=== PATIENT | female | born 1960 | race Caucasian/White ===

== ENCOUNTER → 2016-05-19 | Outpatient (CLI) | payer MEDICARE, OTHER ==
[~2016-05-19] MED LIST: AMLO5TAB22 PO; BACT800T5 PO; BUDE3CAP5 PO; CELE100C PO; CIPR500T4 PO; COUM3TAB PO; CYCL-36 PO; DEXA0.5E2 SSP; DILA2TAB2 PO; DOCU1CAP39 PO; FLON0.053 EACH NARE; FLUC200T2 PO; LORA10TA PO; MONT10TA2 PO; POLY119S PO; PRED1%O EACH EYE; PROT40TA PO; REST0.05 EACH EYE; ROPI1TAB72 PO; TACR0.5 PO; ZOVI400T15 PO; [UNRECOGNIZED DRUG - OTHER] PO
[2016-05-19 09:46] LABS: AUTOMATED NEUTROPHIL # 4.2 TH/MM3 (1.8-7.7); BASOPHIL % 0.6 % (0.0-2.0); EOSINOPHIL # 0.2 TH/MM3 (0-0.4); EOSINOPHIL % 3.7 % (0.0-4.0); HEMATOCRIT 38.3 % (35.0-46.0); HEMO FLAGS DIFF FINAL; LYMPH % 13.2 % (9.0-44.0); LYMPHOCYTE # 0.8 TH/MM3 (1.0-4.8); MEAN CELL VOLUME 97.9 FL (80.0-100.0); MEAN CORPUSCULAR HEMOGLOBIN 31.7 PG (27.0-34.0); MEAN CORPUSCULAR HGB CONC 32.3 % (32.0-36.0); MONO % 8.1 % (0.0-8.0); NEUT % 74.4 % (16.0-70.0); PLATELET COUNT 147 TH/MM3 (150-450); RED BLOOD COUNT 3.91 MIL/MM3 (4.00-5.30); RED CELL DISTRIBUTION WIDTH 14.7 % (11.6-17.2); WHITE BLOOD COUNT 5.7 TH/MM3 (4.0-11.0)
== END ==
LOC: CLAB 09:18
DX: D89.813 Graft-versus-host disease, unspecified (principal)
CPT/HCPCS: 36415; 85025

== ENCOUNTER → 2016-06-15 | Outpatient (CLI) | payer MEDICARE, OTHER ==
[2016-06-15 10:59] LABS: AUTOMATED NEUTROPHIL # 4.4 TH/MM3 (1.8-7.7); BASOPHIL % 0.8 % (0.0-2.0); EOSINOPHIL # 0.2 TH/MM3 (0-0.4); EOSINOPHIL % 3.5 % (0.0-4.0); HEMO FLAGS DIFF FINAL; LYMPH % 11.2 % (9.0-44.0); LYMPHOCYTE # 0.7 TH/MM3 (1.0-4.8); MEAN CELL VOLUME 97.4 FL (80.0-100.0); MEAN CORPUSCULAR HEMOGLOBIN 31.5 PG (27.0-34.0); MEAN CORPUSCULAR HGB CONC 32.3 % (32.0-36.0); MONO % 9.6 % (0.0-8.0); NEUT % 74.9 % (16.0-70.0); PLATELET COUNT 132 TH/MM3 (150-450); RED CELL DISTRIBUTION WIDTH 15.1 % (11.6-17.2); WHITE BLOOD COUNT 5.8 TH/MM3 (4.0-11.0)
[2016-06-15 11:15] LABS: ANION GAP 3 MEQ/L (5-15); BICARBONATE 31.8 MEQ/L (21.0-32.0); BLOOD UREA NITROGEN 31 MG/DL (7-18); CHLORIDE 108 MEQ/L (98-107); GLUCOSE,FASTING 114 MG/DL (74-99); SODIUM (NA) 143 MEQ/L (136-145)
[2016-06-15 11:19] LABS: ALKALINE PHOSPHATASE 73 U/L (45-117); ALT (GPT) 19 U/L (10-53); AST (GOT) 11 U/L (15-37); GLOMERULAR FILTRATION RATE 27 ML/MIN (>89); TOTAL BILIRUBIN ADULT 0.3 MG/DL (0.2-1.0)
== END ==
LOC: CLAB 10:23
DX: D89.813 Graft-versus-host disease, unspecified (principal)
CPT/HCPCS: 36415; 80053; 85025

== ENCOUNTER → 2017-05-29 | Outpatient (CLI) | payer MEDICARE, OTHER ==
[2017-05-29 10:37] LABS: AUTOMATED NEUTROPHIL # 6.1 TH/MM3 (1.8-7.7); BASOPHIL % 0.4 % (0.0-2.0); EOSINOPHIL % 0.5 % (0.0-4.0); HEMATOCRIT 42.1 % (35.0-46.0); HEMOGLOBIN 14.2 GM/DL (11.6-15.3); LYMPH % 9.2 % (9.0-44.0); LYMPHOCYTE # 0.7 TH/MM3 (1.0-4.8); MEAN CELL VOLUME 97.4 FL (80.0-100.0); MEAN CORPUSCULAR HEMOGLOBIN 32.9 PG (27.0-34.0); MEAN CORPUSCULAR HGB CONC 33.8 % (32.0-36.0); MEAN PLATELET VOLUME 7.3 FL (7.0-11.0); MONO % 7.2 % (0.0-8.0); MONOCYTE # 0.5 TH/MM3 (0-0.9); NEUT % 82.7 % (16.0-70.0); PLATELET COUNT 172 TH/MM3 (150-450); RED BLOOD COUNT 4.32 MIL/MM3 (4.00-5.30); RED CELL DISTRIBUTION WIDTH 15.7 % (11.6-17.2); WHITE BLOOD COUNT 7.4 TH/MM3 (4.0-11.0)
[2017-05-29 11:05] LABS: ALBUMIN 3.5 GM/DL (3.4-5.0); AST (GOT) 18 U/L (15-37); BICARBONATE 32.1 MEQ/L (21.0-32.0); BLOOD UREA NITROGEN 36 MG/DL (7-18); CALCIUM 9.4 MG/DL (8.5-10.1); CHLORIDE 104 MEQ/L (98-107); CREATININE 1.92 MG/DL (0.50-1.00); GLOMERULAR FILTRATION RATE 27 ML/MIN (>89); GLUCOSE,FASTING 115 MG/DL (74-99); MAGNESIUM 2.3 MG/DL (1.5-2.5); SODIUM (NA) 141 MEQ/L (136-145)
[2017-05-29 11:08] LABS: ALKALINE PHOSPHATASE 64 U/L (45-117); ALT (GPT) 31 U/L (10-53); IMMUNOGLOBULIN G 565 MG/DL (660-1620); TOTAL BILIRUBIN ADULT 0.4 MG/DL (0.2-1.0); TOTAL PROTEIN 6.5 GM/DL (6.4-8.2)
== END ==
LOC: CLAB 09:59
DX: D89.813 Graft-versus-host disease, unspecified (principal)
CPT/HCPCS: 36415; 80053; 82784; 83615; 83735; 85025

== ENCOUNTER 2017-07-23 18:42 | Emergency (ER) | payer OTHER, MEDICARE ==
[~2017-07-23] VITALS: Ht 170.2 cm; Wt 100.0 kg
[2017-07-23 18:46] VITALS: BP 133/77; PULSE 99; RESP 19; TEMP 98.9; O2SAT 95
[2017-07-23] MEDS ORDERED: SODIUM CHLOR 0.9% 1000 ML INJ 1,000 ML IV SCH (18:49)
--- NOTE | 2017-07-23 18:49 | PD ---
HPI Chief Complaint: n/v Time Seen by Provider: 18:47 Travel History International Travel<30 days: No Contact w/Intl Traveler<30days: No Traveled to known affect area: No History of Present Illness HPI Patient has been having some complaint of nausea vomiting and diarrhea since this morning or so. Patient has history of leukemia, last treatment in 2013. Patient gives a history of a DVT of her to her right upper extremity back in 2016, not currently on any anticoagulation as she was told that she no longer has a DVT there. Patient is visiting from [place] and has no local Multiple allergies please see above Past medical history significant for heparin-induced thrombus cytopenia, hypertension, DVT of the right internal jugular, D&C, history of anemia history of chemotherapy for her AML PFSH Past Medical History Hx Anticoagulant Therapy: Yes Anemia: Yes Autoimmune Disease: Yes (AML) Heart Rhythm Problems: No Cardiac Catheterization: No Cardiovascular Problems: Yes (HEPARIN-INDUCED THROMBOCYTOPENIA,HYPOALBUMINEMIA , HYPOMAGNESEMIA, ) High Cholesterol: No Chemotherapy: Yes Congestive Heart Failure: No Diabetes: No Diminished Hearing: No Deep Vein Thrombosis: Yes (RIGHT INTERNAL JUGULAR, RIGHT ARM) Genitourinary: Yes (C-DIFF) Hypertension: Yes Dilation and Curettage (D&C): Yes Past Surgical History Coronary Artery Bypass Graft: No Tonsillectomy: Yes Other Surgery: Yes (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) Social History Alcohol Use: No Tobacco Use: No Substance Use: No Allergies-Medications (Allergen,Severity, Reaction): Coded Allergies: diatrizoate meglumine (Unverified Allergy, Severe, Shortness of Breath, ) enoxaparin (Unverified Allergy, Severe, 12/07/16) HIT gadobenic acid (Unverified Allergy, Severe, Shortness of Breath, 12/07/16) gadodiamide (Unverified Allergy, Severe, Shortness of Breath, 12/07/16) gadoteridol (Unverified Allergy, Severe, Shortness of Breath, 12/07/16) haloperidol (Unverified Allergy, Severe, 12/07/16) heparin (porcine) (Unverified Allergy, Severe, 12/07/16) HIT iodixanol (Unverified Allergy, Severe, Shortness of Breath, 12/07/16) iohexol (Unverified Allergy, Severe, Shortness of Breath, 12/07/16) Uncoded Allergies: TEGADERM (Allergy, Severe, 11/24/14) Reported Meds & Prescriptions Reported Meds & Active Scripts Active Cipro (Ciprofloxacin HCl) 500 Mg Tab 500 Mg PO BID Reported Coumadin 3 mg (Warfarin Sodium) Warfarin Sodium 3 mg Tab 3 Mg PO DAILY Prograf (Tacrolimus) 0.5 Mg Cap 0.5 Mg PO BID Bactrim DS (Sulfamethoxazole-Trimethoprim DS) 1 Tab Tab 1 Tab PO MOWEFR THREE TIMES WEEKLY ON MONDAY,MONDAY AND MONDAY Requip 1 mg (Ropinirole HCl) 1 Mg Tab 1 Mg PO HS Pred Forte (Prednisolone Acetate) 1 % Susp 1 Drop EACH EYE BID Miralax 119 Gm Bottle (Polyethylene Glycol) 119 Gm Powd 17 Gm PO DAILY 17 GRAMS = 1 TABLESPOON DISSOLVED IN 4 TO 8 OUNCES OF BEVERAGE Protonix (Pantoprazole Sodium) 40 Mg Tabdr 40 Mg PO DAILY [Magnesium Pro Plus] 2 Tab PO BID Singulair (Montelukast Sodium) 10 Mg Tab 10 Mg PO HS Claritin 10 Mg Tab (Loratadine) 10 Mg Tab 10 Mg PO DAILY Dilaudid 2 Mg Tab (Hydromorphone Hcl) 2 Mg Tab 2 Mg PO Q4HR PRN MAX DAILY DOSE: 12MG Flonase (Fluticasone Propionate) 0.05 % Naspr 1 Spr EACH NARE DAILY Fluconazole 200 Mg Tab 200 Mg PO DAILY Colace 100 Mg Cap (Docusate Sodium) 100 Mg Cap 100 Mg PO BID Decadron Elixir (Dexamethasone) 0.5 Mg/5 Ml Elx 5 Ml SSP QID SWISH FOR 5 MINUTES THEN SPIT Restasis (Cyclosporine) 0.05 % Emu 1 Drop EACH EYE BID Flexeril (Cyclobenzaprine HCl) 10 Mg Tab 10 Mg PO TID PRN Celebrex (Celecoxib) 100 Mg Cap 100 Mg PO DAILY Entocort Ec (Budesonide) 3 Mg/24 Hr Cap 3 Mg PO BID Amlodipine Besylate 5 mg (Amlodipine Besylate) 5 Mg Tab 5 Mg PO DAILY Zovirax (Acyclovir) 400 Mg Tab 400 Mg PO BID Review of Systems General / Constitutional: No: Fever Eyes: No: Visual changes HENT: No: Headaches Cardiovascular: No: Chest Pain or Discomfort Respiratory: No: Shortness of Breath Gastrointestinal: Positive: Nausea, Vomiting Genitourinary: No: Dysuria Musculoskeletal: No: Pain Skin: No Rash Neurologic: No: Weakness Psychiatric: No: Depression Endocrine: No: Polydipsia Hematologic/Lymphatic: No: Easy Bruising Physical Exam Narrative GENERAL: SKIN: Warm and dry. HEAD: Atraumatic. Normocephalic. EYES: Pupils equal and round. No scleral icterus. No injection or drainage. ENT: No nasal bleeding or discharge. Mucous membranes pink and moist. NECK: Trachea midline. No JVD. CARDIOVASCULAR: Regular rate and rhythm. RESPIRATORY: No accessory muscle use. Clear to auscultation. Breath sounds equal bilaterally. GASTROINTESTINAL: Abdomen soft, non-tender, nondistended. MUSCULOSKELETAL: Extremities without clubbing, cyanosis, or edema. No obvious deformities. NEUROLOGICAL: Awake and alert. No obvious cranial nerve deficits. Motor grossly within normal limits. Five out of 5 muscle strength in the arms and legs. Normal speech. PSYCHIATRIC: Appropriate mood and affect; insight and judgment normal. Data Data Orders Orders Complete Blood Count With Diff (07/23/17 18:49) Comprehensive Metabolic Panel (07/23/17 18:49) Lipase (07/23/17 18:49) Prothrombin Time / Inr (Pt) (07/23/17 18:49) Act Partial Throm Time (Ptt) (07/23/17 18:49) Urinalysis - C+S If Indicated (07/23/17 18:49) Iv Access Insert/Monitor (07/23/17 18:49) Ecg Monitoring (07/23/17 18:49) Oximetry (07/23/17 18:49) NPO (07/23/17 18:49) Ondansetron Inj (Zofran Inj) (07/23/17 19:00) Sodium Chlor 0.9% 1000 Ml Inj (Ns 1000 M (07/23/17 18:49) Sodium Chloride 0.9% Flush (Ns Flush) (07/23/17 19:00) Electrocardiogram (07/23/17 18:49) Ckmb (Isoenzyme) Profile (07/23/17 18:50) Troponin I (07/23/17 18:50) B-Type Natriuretic Peptide (07/23/17 18:50) MDM Medical Decision Making Medical Screen Exam Complete: Yes Emergency Medical Condition: Yes Medical Record Reviewed: Yes Interpretation(s) EKG shows normal sinus rhythm, 97 bpm, normal intervals, motion artifact baseline however it is still clear enough to see that there is no ST elevation UT pattern. Differential Diagnosis Enteritis versus viral illness versus STEMI versus non-STEMI versus pancreatitis versus pancreatitis Narrative Course As of 185 the patient just got an IV and got blood work collected, patient will be signed out to incoming physician pending lab and reevaluation Don Gan MD Jul 23, 2017 18:49
[2017-07-23] MEDS ORDERED: ONDANSETRON HCL 4 MG/2 ML VIAL IVP ONE (19:00)
[2017-07-23] MEDS ORDERED: SODIUM CHLORIDE 0.9% FLUSH 10 ML FLUSH IV FLUSH PRN (19:00)
[2017-07-23 19:05] VITALS: O2SAT 96
[2017-07-23] MEDS ORDERED: TACROLIMUS 1 MG CAP PO ONE (19:15)
[2017-07-23] MEDS ORDERED: APIXABAN 5 MG TABLET PO ONE (19:15)
[2017-07-23] MEDS ORDERED: HYDROCORTISONE SOD SUCCINATE 100 MG VIAL IV PUSH ONE (19:15)
[2017-07-23 19:18] LABS: AUTOMATED NEUTROPHIL # 11.7 TH/MM3 (1.8-7.7); BASOPHIL % 0.1 % (0.0-2.0); EOSINOPHIL % 0.3 % (0.0-4.0); HEMATOCRIT 48.3 % (35.0-46.0); HEMOGLOBIN 16.2 GM/DL (11.6-15.3); LYMPH % 1.7 % (9.0-44.0); LYMPHOCYTE # 0.2 TH/MM3 (1.0-4.8); MEAN CELL VOLUME 97.7 FL (80.0-100.0); MEAN CORPUSCULAR HEMOGLOBIN 32.6 PG (27.0-34.0); MEAN CORPUSCULAR HGB CONC 33.4 % (32.0-36.0); MEAN PLATELET VOLUME 7.9 FL (7.0-11.0); MONO % 3.2 % (0.0-8.0); MONOCYTE # 0.4 TH/MM3 (0-0.9); NEUT % 94.7 % (16.0-70.0); PLATELET COUNT 149 TH/MM3 (150-450); RED BLOOD COUNT 4.95 MIL/MM3 (4.00-5.30); RED CELL DISTRIBUTION WIDTH 15.5 % (11.6-17.2); WHITE BLOOD COUNT 12.3 TH/MM3 (4.0-11.0)
[2017-07-23 19:33] LABS: PROTHROMBIN TIME - PATIENT 9.9 SEC (9.8-11.6)
--- NOTE | 2017-07-23 19:36 | PD ---
HPI Chief Complaint: Abdominal Pain Time Seen by Provider: 18:58 Travel History International Travel<30 days: No Contact w/Intl Traveler<30days: No Traveled to known affect area: No History of Present Illness HPI Is a 57-year-old woman presents to the emergency department complaining of nausea vomiting diarrhea started today. She is visiting from out of town. She felt like she may have had food poisoning. She was seen initially by Dr. Gan, and signed out to me to follow-up on the results of testing. Review of records shows extensive medical history including leukemia, treated with bone marrow transplant, complicated by ncurz-[id number]-zwdk disease. She is currently on immunosuppression with Prograf, budesonide, and prednisone. She takes fluconazole, and azithromycin, and acyclovir for prophylaxis. She is currently on apixaban/Eliquis for previous DVT and her right IJ and upper extremity. She has not been able take her medications this morning because of the nausea vomiting and diarrhea. She does have some abdominal cramping. History Past Medical History Narrative Medical History of acute myeloid leukemia, status post bone marrow transplant, complicated by oyrii-nprwon-zttw disease, on immunosuppression with budesonide, prednisone, Prograf. Chronic kidney disease Asthma Bilateral lower extremity edema Chronic thrombosis right IJ, upper extremity DVT, on Eliquis Hypertension Interstitial lung disease Iron overload with reported increased H&H treated by phlebotomy Hypogammaglobulinemia, immune compromise Weakness Dilation and Curettage (D&C): Yes Social History Alcohol Use: No Tobacco Use: No Allergies-Medications (Allergen,Severity, Reaction): Coded Allergies: diatrizoate meglumine (Unverified Allergy, Severe, Shortness of Breath, ) enoxaparin (Unverified Allergy, Severe, 12/07/16) HIT gadobenic acid (Unverified Allergy, Severe, Shortness of Breath, 12/07/16) gadodiamide (Unverified Allergy, Severe, Shortness of Breath, 12/07/16) gadoteridol (Unverified Allergy, Severe, Shortness of Breath, 12/07/16) haloperidol (Unverified Allergy, Severe, 12/07/16) heparin (porcine) (Unverified Allergy, Severe, 12/07/16) HIT iodixanol (Unverified Allergy, Severe, Shortness of Breath, 12/07/16) iohexol (Unverified Allergy, Severe, Shortness of Breath, 12/07/16) Uncoded Allergies: TEGADERM (Allergy, Severe, 11/24/14) Reported Meds & Prescriptions Reported Meds & Active Scripts Active Cipro (Ciprofloxacin HCl) 500 Mg Tab 500 Mg PO BID Reported Coumadin 3 mg (Warfarin Sodium) Warfarin Sodium 3 mg Tab 3 Mg PO DAILY Prograf (Tacrolimus) 0.5 Mg Cap 0.5 Mg PO BID Bactrim DS (Sulfamethoxazole-Trimethoprim DS) 1 Tab Tab 1 Tab PO MOWEFR THREE TIMES WEEKLY ON MONDAY,MONDAY AND MONDAY Requip 1 mg (Ropinirole HCl) 1 Mg Tab 1 Mg PO HS Pred Forte (Prednisolone Acetate) 1 % Susp 1 Drop EACH EYE BID Miralax 119 Gm Bottle (Polyethylene Glycol) 119 Gm Powd 17 Gm PO DAILY 17 GRAMS = 1 TABLESPOON DISSOLVED IN 4 TO 8 OUNCES OF BEVERAGE Protonix (Pantoprazole Sodium) 40 Mg Tabdr 40 Mg PO DAILY [Magnesium Pro Plus] 2 Tab PO BID Singulair (Montelukast Sodium) 10 Mg Tab 10 Mg PO HS Claritin 10 Mg Tab (Loratadine) 10 Mg Tab 10 Mg PO DAILY Dilaudid 2 Mg Tab (Hydromorphone Hcl) 2 Mg Tab 2 Mg PO Q4HR PRN MAX DAILY DOSE: 12MG Flonase (Fluticasone Propionate) 0.05 % Naspr 1 Spr EACH NARE DAILY Fluconazole 200 Mg Tab 200 Mg PO DAILY Colace 100 Mg Cap (Docusate Sodium) 100 Mg Cap 100 Mg PO BID Decadron Elixir (Dexamethasone) 0.5 Mg/5 Ml Elx 5 Ml SSP QID SWISH FOR 5 MINUTES THEN SPIT Restasis (Cyclosporine) 0.05 % Emu 1 Drop EACH EYE BID Flexeril (Cyclobenzaprine HCl) 10 Mg Tab 10 Mg PO TID PRN Celebrex (Celecoxib) 100 Mg Cap 100 Mg PO DAILY Entocort Ec (Budesonide) 3 Mg/24 Hr Cap 3 Mg PO BID Amlodipine Besylate 5 mg (Amlodipine Besylate) 5 Mg Tab 5 Mg PO DAILY Zovirax (Acyclovir) 400 Mg Tab 400 Mg PO BID Review of Systems Except as stated in HPI: all other systems reviewed are Neg Physical Exam Narrative GENERAL: 57-year-old woman, appears a little bit deconditioned, not toxic. SKIN: Focused skin assessment warm/dry. HEAD: Atraumatic. Normocephalic. EYES: Pupils equal and round. No scleral icterus. No injection or drainage. ENT: No nasal bleeding or discharge. Mucous membranes pink and moist. NECK: Trachea midline. No JVD. CARDIOVASCULAR: Regular rate and rhythm. No murmur appreciated. RESPIRATORY: No accessory muscle use. Clear to auscultation. Breath sounds equal bilaterally. GASTROINTESTINAL: Abdomen soft, non-tender, nondistended. Hepatic and splenic margins not palpable. MUSCULOSKELETAL: No obvious deformities. No clubbing. No cyanosis. No edema. NEUROLOGICAL: Awake and alert. Data Data Last Documented VS Vital Signs Date Time Temp Pulse Resp B/P (MAP) Pulse Ox O2 Delivery O2 Flow Rate FiO2 07/23/17 19:05 96 Room Air 07/23/17 18:46 98.9 99 19 133/77 (95) Orders Orders Complete Blood Count With Diff (07/23/17 18:49) Prothrombin Time / Inr (Pt) (07/23/17 18:49) Act Partial Throm Time (Ptt) (07/23/17 18:49) Urinalysis - C+S If Indicated (07/23/17 18:49) Iv Access Insert/Monitor (07/23/17 18:49) Ecg Monitoring (07/23/17 18:49) Oximetry (07/23/17 18:49) NPO (07/23/17 18:49) Ondansetron Inj (Zofran Inj) (07/23/17 19:00) Sodium Chlor 0.9% 1000 Ml Inj (Ns 1000 M (07/23/17 18:49) Sodium Chloride 0.9% Flush (Ns Flush) (07/23/17 19:00) Electrocardiogram (07/23/17 18:49) Ckmb (Isoenzyme) Profile (07/23/17 18:50) Troponin I (07/23/17 18:50) B-Type Natriuretic Peptide (07/23/17 18:50) Hydrocortisone Inj (Solucortef Inj) (07/23/17 19:15) Tacrolimus (Prograf) (07/23/17 19:15) Apixaban (Eliquis) (07/23/17 19:15) Comprehensive Metabolic Panel (07/23/17 18:57) Lipase (07/23/17 18:57) Acetaminophen (Tylenol) (07/23/17 19:45) CKMB (07/23/17 18:57) CKMB% (07/23/17 18:57) Labs Laboratory Tests Test 07/23/17 18:57 White Blood Count 12.3 TH/MM3 Red Blood Count 4.95 MIL/MM3 Hemoglobin 16.2 GM/DL Hematocrit 48.3 % Mean Corpuscular Volume 97.7 FL Mean Corpuscular Hemoglobin 32.6 PG Mean Corpuscular Hemoglobin Concent 33.4 % Red Cell Distribution Width 15.5 % Platelet Count 149 TH/MM3 Mean Platelet Volume 7.9 FL Neutrophils (%) (Auto) 94.7 % Lymphocytes (%) (Auto) 1.7 % Monocytes (%) (Auto) 3.2 % Eosinophils (%) (Auto) 0.3 % Basophils (%) (Auto) 0.1 % Neutrophils # (Auto) 11.7 TH/MM3 Lymphocytes # (Auto) 0.2 TH/MM3 Monocytes # (Auto) 0.4 TH/MM3 Eosinophils # (Auto) 0.0 TH/MM3 Basophils # (Auto) 0.0 TH/MM3 CBC Comment DIFF FINAL Differential Comment Prothrombin Time 9.9 SEC Prothromb Time International Ratio 1.0 RATIO Activated Partial Thromboplast Time 20.0 SEC Blood Urea Nitrogen 44 MG/DL Creatinine 1.96 MG/DL Random Glucose 190 MG/DL Total Protein 7.1 GM/DL Albumin 3.6 GM/DL Calcium Level 9.4 MG/DL Alkaline Phosphatase 73 U/L Aspartate Amino Transf (AST/SGOT) 69 U/L Alanine Aminotransferase (ALT/SGPT) 71 U/L Total Bilirubin 1.1 MG/DL Sodium Level 142 MEQ/L Potassium Level 4.7 MEQ/L Chloride Level 103 MEQ/L Carbon Dioxide Level 27.9 MEQ/L Anion Gap 11 MEQ/L Estimat Glomerular Filtration Rate 26 ML/MIN Total Creatine Kinase 282 U/L Troponin I 0.02 NG/ML B-Type Natriuretic Peptide 202 PG/ML Lipase 175 U/L MDM Medical Decision Making Medical Screen Exam Complete: Yes Emergency Medical Condition: Yes Interpretation(s) My review of EKG: Normal sinus rhythm at a rate of 97, normal axis, normal intervals, no acute ischemia. Differential Diagnosis Acute gastroenteritis, dehydration, electrolyte abnormality, occult infection, inability to take chronic steroids and chronic immunosuppressive's, other Narrative Course Medical decision making Is a 57-year-old woman presents to the emergency department with nausea vomiting diarrhea in the setting of significant immune compromise. She has not been able to tolerate her anticoagulants, steroids, tacrolimus. Will check labs , IV fluids, reduce her home medications. Given her steroid dependent, acute nausea, Diarrhea, missing doses of steroids, will give her a dose of IV hydrocortisone. Reassess. Enrrique Valle MD Jul 23, 2017 19:36
[2017-07-23 19:40] LABS: ALBUMIN 3.6 GM/DL (3.4-5.0); ALT (GPT) 71 U/L (10-53); AST (GOT) 69 U/L (15-37); BICARBONATE 27.9 MEQ/L (21.0-32.0); BLOOD UREA NITROGEN 44 MG/DL (7-18); CALCIUM 9.4 MG/DL (8.5-10.1); CHLORIDE 103 MEQ/L (98-107); CREATININE 1.96 MG/DL (0.50-1.00); GLOMERULAR FILTRATION RATE 26 ML/MIN (>89); GLUCOSE,RANDOM 190 MG/DL (74-106); SODIUM (NA) 142 MEQ/L (136-145)
[2017-07-23 19:44] LABS: ALKALINE PHOSPHATASE 73 U/L (45-117); TOTAL BILIRUBIN ADULT 1.1 MG/DL (0.2-1.0); TOTAL PROTEIN 7.1 GM/DL (6.4-8.2); TROPONIN I 0.02 NG/ML (0.02-0.05)
[2017-07-23] MEDS ORDERED: ACETAMINOPHEN 500 MG CPLT PO ONE (19:45)
[2017-07-23 22:08] LABS: BACTERIA, URINE RARE /hpf; BILIRUBIN, URINE NEG (NEG); BLOOD, URINE NEG (NEG); GLUCOSE,URINE NEG (NEG); HYALINE CAST, URINE 2 /lpf (RARE); KETONE, URINE NEG (NEG); MUCUS URINE FEW /lpf (OCC); NITRITE,URINE NEG (NEG); PH, URINE 5.5 (5.0-8.5); SQUAMOUS EPITHELIAL CELL URINE <1 /hpf (0-5); TRANSITIONAL EPI CELLS, URINE <1 /hpf; URINE COLOR YELLOW (YELLW/STRAW); URINE LEUKOCYTE ESTERASE TRACE (NEG)
[2017-07-23] MEDS ORDERED: SODIUM CHLOR 0.9% 1000 ML INJ 1,000 ML IV ONE (22:30)
[2017-07-23] MEDS ORDERED: ONDANSETRON HCL 4 MG/2 ML VIAL IV ONE (22:30)
[2017-07-24] MEDS ORDERED: ONDA4TAB7 SL (00:16)
--- NOTE | 2017-07-24 00:16 | PD ---
Data Data Last Documented VS Vital Signs Date Time Temp Pulse Resp B/P (MAP) Pulse Ox O2 Delivery O2 Flow Rate FiO2 07/23/17 19:05 96 Room Air 07/23/17 18:46 98.9 99 19 133/77 (95) Orders Orders Complete Blood Count With Diff (07/23/17 18:49) Prothrombin Time / Inr (Pt) (07/23/17 18:49) Act Partial Throm Time (Ptt) (07/23/17 18:49) Urinalysis - C+S If Indicated (07/23/17 18:49) Iv Access Insert/Monitor (07/23/17 18:49) Ecg Monitoring (07/23/17 18:49) Oximetry (07/23/17 18:49) NPO (07/23/17 18:49) Ondansetron Inj (Zofran Inj) (07/23/17 19:00) Sodium Chlor 0.9% 1000 Ml Inj (Ns 1000 M (07/23/17 18:49) Sodium Chloride 0.9% Flush (Ns Flush) (07/23/17 19:00) Electrocardiogram (07/23/17 18:49) Ckmb (Isoenzyme) Profile (07/23/17 18:50) Troponin I (07/23/17 18:50) B-Type Natriuretic Peptide (07/23/17 18:50) Hydrocortisone Inj (Solucortef Inj) (07/23/17 19:15) Tacrolimus (Prograf) (07/23/17 19:15) Apixaban (Eliquis) (07/23/17 19:15) Comprehensive Metabolic Panel (07/23/17 18:57) Lipase (07/23/17 18:57) Acetaminophen (Tylenol) (07/23/17 19:45) CKMB (07/23/17 18:57) CKMB% (07/23/17 18:57) Sodium Chlor 0.9% 1000 Ml Inj (Ns 1000 M (07/23/17 22:30) Ondansetron Inj (Zofran Inj) (07/23/17 22:30) Labs Laboratory Tests Test 07/23/17 18:57 07/23/17 21:35 White Blood Count 12.3 TH/MM3 Red Blood Count 4.95 MIL/MM3 Hemoglobin 16.2 GM/DL Hematocrit 48.3 % Mean Corpuscular Volume 97.7 FL Mean Corpuscular Hemoglobin 32.6 PG Mean Corpuscular Hemoglobin Concent 33.4 % Red Cell Distribution Width 15.5 % Platelet Count 149 TH/MM3 Mean Platelet Volume 7.9 FL Neutrophils (%) (Auto) 94.7 % Lymphocytes (%) (Auto) 1.7 % Monocytes (%) (Auto) 3.2 % Eosinophils (%) (Auto) 0.3 % Basophils (%) (Auto) 0.1 % Neutrophils # (Auto) 11.7 TH/MM3 Lymphocytes # (Auto) 0.2 TH/MM3 Monocytes # (Auto) 0.4 TH/MM3 Eosinophils # (Auto) 0.0 TH/MM3 Basophils # (Auto) 0.0 TH/MM3 CBC Comment DIFF FINAL Differential Comment Prothrombin Time 9.9 SEC Prothromb Time International Ratio 1.0 RATIO Activated Partial Thromboplast Time 20.0 SEC Blood Urea Nitrogen 44 MG/DL Creatinine 1.96 MG/DL Random Glucose 190 MG/DL Total Protein 7.1 GM/DL Albumin 3.6 GM/DL Calcium Level 9.4 MG/DL Alkaline Phosphatase 73 U/L Aspartate Amino Transf (AST/SGOT) 69 U/L Alanine Aminotransferase (ALT/SGPT) 71 U/L Total Bilirubin 1.1 MG/DL Sodium Level 142 MEQ/L Potassium Level 4.7 MEQ/L Chloride Level 103 MEQ/L Carbon Dioxide Level 27.9 MEQ/L Anion Gap 11 MEQ/L Estimat Glomerular Filtration Rate 26 ML/MIN Total Creatine Kinase 282 U/L Creatine Kinase MB 12.0 NG/ML Creatine Kinase MB % 4.3 % Troponin I 0.02 NG/ML B-Type Natriuretic Peptide 202 PG/ML Lipase 175 U/L Urine Color YELLOW Urine Turbidity CLEAR Urine pH 5.5 Urine Specific [place] 1.022 Urine Protein TRACE mg/dL Urine Glucose (UA) NEG mg/dL Urine Ketones NEG mg/dL Urine Occult Blood NEG Urine Nitrite NEG Urine Bilirubin NEG Urine Urobilinogen LESS THAN 2.0 MG/DL Urine Leukocyte Esterase TRACE Urine RBC 1 /hpf Urine WBC 4 /hpf Urine Squamous Epithelial Cells <1 /hpf Urine Transitional Epithelial Cells <1 /hpf Urine Bacteria RARE /hpf Urine Hyaline Casts 2 /lpf Urine Mucus FEW /lpf Microscopic Urinalysis Comment CULT NOT INDICATED [facility] Supervised Visit with HAFSA: No Narrative Course Repeat assessment, patient felt much improved. Able to keep her oral medications down. Labs are reassuring. Patient high risk given her immune compromised, but also high risk for hospitalization for healthcare associated infections. This point, patient is doing much better, she is able to tolerate all her medications okay, would recommend discharge, supportive treatment, outpatient follow-up, return for any worsening symptoms. Patient is agreeable. Diagnosis Primary Impression: Gastroenteritis Additional Instruction: The Zofran if needed for nausea or vomiting. Drink plenty fluids stay well-hydrated. Return to the emergency department for any new or worsening symptoms. Med/Other Pt SpecificInfo: Prescription(s) given Scripts Ondansetron Odt (Ondansetron Odt) 4 Mg Tab 4 MG SL Q8HR Y for Nausea/Vomiting, #21 TAB 0 Refills Prov: Enrrique Valle MD 07/24/17 Disposition: DISCHARGE HOME Condition: Stable Enrrique Valle MD Jul 24, 2017 00:16
--- NOTE | 2017-07-24 08:55 | EKG ---
Date Performed: 07/23/2017 Time Performed: 18:50:21 PTAGE: 57 years EKG: Sinus rhythm NORMAL ECG PREVIOUS TRACING : 11/24/2014 12.34 Since the previous tracing, no significant change noted DOCTOR: Jerry Grace Interpretating Date/Time 07/24/2017 08:54:49
== END 2017-07-24 03:25 | disposition home or self-care (01) ==
LOC: NEPC 18:42
DX: K52.9 Noninfective gastroenteritis and colitis, unspecified (principal); I12.9 Hypertensive chronic kidney disease with stage 1 through stage 4 chronic kidney disease, or unspecified chronic kidney disease; N18.9 Chronic kidney disease, unspecified; D89.813 Graft-versus-host disease, unspecified; J45.909 Unspecified asthma, uncomplicated; J84.9 Interstitial pulmonary disease, unspecified; Z85.6 Personal history of leukemia; Z86.718 Personal history of other venous thrombosis and embolism; Z94.81 Bone marrow transplant status
CPT/HCPCS: 80053; 81001; 82550; 82552; 83690; 83880; 84484; 85025; 85610; 85730; 93005; 96361; 96374; 96375; 96376; 99284; J1720; J2405; J7030; J7507

== ENCOUNTER → 2017-07-26 | Outpatient (CLI) | payer OTHER, MEDICARE ==
[~2017-07-26] MED LIST changes: +ACYC400T PO; +APIX5TAB PO; +ASCO500T PO; +AZIT250T3 PO; +BUDE3CAP PO; +CALC600T10 PO; +CEPH500T PO; +DIFL200T PO; +DOCU100C15 PO; +DULE100A INH; +MAGNESIUM PO; +MIRA3350 PO; +MONT10TA4 PO; +ONDA4TAB7 SL; +PANT40TA3 PO; +PRED5TAB PO; +PROTEIN PO; +TACR1CAP PO; +TOPR100T PO
[2017-07-26 12:44] LABS: AUTOMATED NEUTROPHIL # 6.5 TH/MM3 (1.8-7.7); BASOPHIL % 0.2 % (0.0-2.0); EOSINOPHIL % 0.1 % (0.0-4.0); HEMATOCRIT 42.4 % (35.0-46.0); HEMOGLOBIN 14.3 GM/DL (11.6-15.3); LYMPH % 9.9 % (9.0-44.0); LYMPHOCYTE # 0.8 TH/MM3 (1.0-4.8); MEAN CELL VOLUME 97.8 FL (80.0-100.0); MEAN CORPUSCULAR HGB CONC 33.7 % (32.0-36.0); MEAN PLATELET VOLUME 7.5 FL (7.0-11.0); MONO % 5.4 % (0.0-8.0); MONOCYTE # 0.4 TH/MM3 (0-0.9); NEUT % 84.4 % (16.0-70.0); PLATELET COUNT 150 TH/MM3 (150-450); RED BLOOD COUNT 4.33 MIL/MM3 (4.00-5.30); RED CELL DISTRIBUTION WIDTH 14.9 % (11.6-17.2); WHITE BLOOD COUNT 7.7 TH/MM3 (4.0-11.0)
[2017-07-26 13:23] LABS: ALBUMIN 3.2 GM/DL (3.4-5.0); ALKALINE PHOSPHATASE 49 U/L (45-117); ALT (GPT) 60 U/L (10-53); AST (GOT) 36 U/L (15-37); BICARBONATE 24.7 MEQ/L (21.0-32.0); BLOOD UREA NITROGEN 35 MG/DL (7-18); CALCIUM 9.1 MG/DL (8.5-10.1); CHLORIDE 107 MEQ/L (98-107); CREATININE 2.07 MG/DL (0.50-1.00); GLOMERULAR FILTRATION RATE 25 ML/MIN (>89); GLUCOSE,FASTING 108 MG/DL (74-99); MAGNESIUM 1.6 MG/DL (1.5-2.5); SODIUM (NA) 141 MEQ/L (136-145); TOTAL BILIRUBIN ADULT 0.5 MG/DL (0.2-1.0); TOTAL PROTEIN 6.3 GM/DL (6.4-8.2)
[2017-07-26 18:12] LABS: IMMUNOGLOBULIN G 486 MG/DL (660-1620)
== END ==
LOC: CLAB 12:15
DX: D89.813 Graft-versus-host disease, unspecified (principal); R19.7 Diarrhea, unspecified
CPT/HCPCS: 36415; 80053; 82784; 83615; 83735; 85025; 87425; 87493; 87506

== ENCOUNTER 2017-07-28 10:11 | Inpatient (IN) | payer OTHER, MEDICARE ==
[~2017-07-28] VITALS: Ht 172.7 cm; Wt 52.2 kg
[~2017-07-28 10:11] MED LIST changes: -ACYC400T PO; -APIX5TAB PO; -ASCO500T PO; -AZIT250T3 PO; -BUDE3CAP PO; -CALC600T10 PO; -CEPH500T PO; -DIFL200T PO; -DOCU100C15 PO; -DULE100A INH; -MAGNESIUM PO; -MIRA3350 PO; -MONT10TA4 PO; -PANT40TA3 PO; -PRED5TAB PO; -PROTEIN PO; -TACR1CAP PO; -TOPR100T PO
[2017-07-28 10:23] VITALS: BP 141/89; PULSE 71; RESP 20; TEMP 97.3; O2SAT 98
[2017-07-28] MEDS ORDERED: ONDANSETRON HCL 4 MG/2 ML VIAL IVP ONE (10:30)
[2017-07-28] MEDS ORDERED: SODIUM CHLORIDE 0.9% FLUSH 10 ML FLUSH IV FLUSH PRN ×2 (10:30→14:15)
[2017-07-28] MEDS ORDERED: SODIUM CHLOR 0.9% 1000 ML INJ 1,000 ML IV SCH (10:30)
[2017-07-28 10:33] VITALS: PULSE 73; RESP 18; O2SAT 98
[2017-07-28 10:39] VITALS: BP 138/90; PULSE 73; RESP 18; O2SAT 100
--- NOTE | 2017-07-28 10:45 | PD ---
HPI Chief Complaint: GI Complaint Time Seen by Provider: 10:38 Travel History International Travel<30 days: No Contact w/Intl Traveler<30days: No Traveled to known affect area: No History of Present Illness HPI 57-year-old female patient with history of previous currently on blood thinners , leukemia status post bone marrow transplant, currently on tacrolimus, presents to the ER today because she has been having a week and a half history of nausea, vomiting, diarrhea, was seen last week in the ER and released, was since followed up with stool cultures by her primary care physicians in [place] , was told that she has rhinovirus, but they were concerned because she is having ongoing symptoms and they are concerned that she may be having worsening renal function and dehydration. Patient states that she had been taking Zofran and that helped a bit but she is still having episodes of vomiting and diarrhea. She denies any new symptoms. 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, RIGHT ARM) Genitourinary: Yes (C-DIFF) Heparin Induced Thrombocytopen: No Hypertension: Yes Dilation and Curettage (D&C): Yes Past Surgical History Coronary Artery Bypass Graft: No Tonsillectomy: Yes Other Surgery: Yes (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) Social History Alcohol Use: No Tobacco Use: No Substance Use: No Allergies-Medications (Allergen,Severity, Reaction): Coded Allergies: diatrizoate meglumine (Unverified Allergy, Severe, Shortness of Breath, ) enoxaparin (Unverified Allergy, Severe, 12/07/16) HIT gadobenic acid (Unverified Allergy, Severe, Shortness of Breath, 12/07/16) gadodiamide (Unverified Allergy, Severe, Shortness of Breath, 12/07/16) gadoteridol (Unverified Allergy, Severe, Shortness of Breath, 12/07/16) haloperidol (Unverified Allergy, Severe, 12/07/16) heparin (porcine) (Unverified Allergy, Severe, 12/07/16) HIT iodixanol (Unverified Allergy, Severe, Shortness of Breath, 12/07/16) iohexol (Unverified Allergy, Severe, Shortness of Breath, 12/07/16) Uncoded Allergies: TEGADERM (Allergy, Severe, 11/24/14) Reported Meds & Prescriptions Reported Meds & Active Scripts Active Reported Azithromycin 250 Mg Tab 250 Mg PO DIRECTED Take 2 tabs (500 mg) on day 1 then 1 tab daily x 4 days. Prednisone 5 Mg Tab 5 Mg PO Diflucan (Fluconazole) 200 Mg Tab 200 Mg PO DAILY Tacrolimus 1 Mg Cap 0.5 Mg PO HS Tacrolimus 1 Mg Cap 1 Mg PO DAILY Miralax Powder (Polyethylene Glycol 3350 Powder) 17 Gm Powd 17 Gm PO DAILY Mix and dissolve one measuring cap-ful (17 grams) in water or juice. Pantoprazole (Pantoprazole Sodium) 40 Mg Tab 40 Mg PO DAILY Montelukast (Montelukast Sodium) 10 Mg Tab 10 Mg PO HS Toprol XL (Metoprolol Succinate) 100 Mg Tab 100 Mg PO DAILY [magnesium + protein] 133 Mg PO BID Dulera 120 Act Inh (Mometasone-Formoterol 120 Act Inh) 100-5 Mcg/Act Inh 2 Puff INH BID Docusate Sodium 100 Mg Cap 100 Mg PO BID PRN Calcium + D3 (Calcium Carbonate-Cholecalciferol) 600-200 Mg-Unit Tab 1 Tab PO BID Ascorbic Acid 500 Mg Tab 100 Mg PO BID Eliquis (Apixaban) 5 Mg Tab 5 Mg PO BID Acyclovir 400 Mg Tab 400 Mg PO BID Budesonide DR (Budesonide) 3 Mg Capdr 6 Mg PO BID Review of Systems Except as stated in HPI: all other systems reviewed are Neg Physical Exam Narrative GENERAL: Well-developed middle-age female patient and moderate distress. Awake and oriented 3. SKIN: Focused skin assessment warm/dry. HEAD: Atraumatic. Normocephalic. EYES: Pupils equal and round. No scleral icterus. No injection or drainage. ENT: No nasal bleeding or discharge. Dry mucous membranes. NECK: Trachea midline. No JVD. Supple. CARDIOVASCULAR: Regular rate and rhythm. No murmur appreciated. RESPIRATORY: No accessory muscle use. Clear to auscultation. Breath sounds equal bilaterally. GASTROINTESTINAL: Abdomen soft, non-tender, nondistended. Hepatic and splenic margins not palpable. MUSCULOSKELETAL: No obvious deformities. No clubbing. No cyanosis. No edema. NEUROLOGICAL: Awake and alert. No obvious cranial nerve deficits. Motor grossly within normal limits. Normal speech. PSYCHIATRIC: Appropriate mood and affect; insight and judgment normal. Data Data Last Documented VS Vital Signs Date Time Temp Pulse Resp B/P (MAP) Pulse Ox O2 Delivery O2 Flow Rate FiO2 07/28/17 10:39 73 18 138/90 (106) 100 Room Air 07/28/17 10:23 97.3 Orders Orders Complete Blood Count With Diff (07/28/17 10:30) Comprehensive Metabolic Panel (07/28/17 10:30) Lipase (07/28/17 10:30) Urinalysis - C+S If Indicated (07/28/17 10:30) Iv Access Insert/Monitor (07/28/17 10:30) Ecg Monitoring (07/28/17 10:30) Oximetry (07/28/17 10:30) Ondansetron Inj (Zofran Inj) (07/28/17 10:30) Sodium Chlor 0.9% 1000 Ml Inj (Ns 1000 M (07/28/17 10:30) Sodium Chloride 0.9% Flush (Ns Flush) (07/28/17 10:30) Tacrolimus (Fk506) Prograf (07/28/17 10:38) Potassium Chloride (Kcl) (07/28/17 13:30) Urine Culture (07/28/17 11:09) Blood Culture (07/28/17 13:26) Lactic Acid Sepsis Protocol (07/28/17 13:26) Piperacil-Tazo 4.5 Gm Premix (Zosyn 4.5 (07/28/17 13:26) Labs Laboratory Tests Test 07/28/17 11:01 07/28/17 11:09 07/28/17 12:10 07/28/17 13:40 White Blood Count 7.8 TH/MM3 Red Blood Count 4.46 MIL/MM3 Hemoglobin 14.7 GM/DL Hematocrit 43.3 % Mean Corpuscular Volume 97.0 FL Mean Corpuscular Hemoglobin 32.9 PG Mean Corpuscular Hemoglobin Concent 33.9 % Red Cell Distribution Width 15.3 % Platelet Count 175 TH/MM3 Mean Platelet Volume 8.0 FL Neutrophils (%) (Auto) 80.0 % Lymphocytes (%) (Auto) 10.5 % Monocytes (%) (Auto) 8.2 % Eosinophils (%) (Auto) 1.0 % Basophils (%) (Auto) 0.3 % Neutrophils # (Auto) 6.3 TH/MM3 Lymphocytes # (Auto) 0.8 TH/MM3 Monocytes # (Auto) 0.6 TH/MM3 Eosinophils # (Auto) 0.1 TH/MM3 Basophils # (Auto) 0.0 TH/MM3 CBC Comment DIFF FINAL Differential Comment Urine Color LIGHT-YELLOW Urine Turbidity CLEAR Urine pH 5.0 Urine Specific [place] 1.009 Urine Protein NEG mg/dL Urine Glucose (UA) NEG mg/dL Urine Ketones NEG mg/dL Urine Occult Blood NEG Urine Nitrite NEG Urine Bilirubin NEG Urine Urobilinogen LESS THAN 2.0 MG/DL Urine Leukocyte Esterase LARGE Urine RBC 1 /hpf Urine WBC 39 /hpf Urine Squamous Epithelial Cells 2 /hpf Urine Renal Epithelial Cells <1 /hpf Urine Bacteria RARE /hpf Urine Hyaline Casts 3 /lpf Urine Mucus FEW /lpf Microscopic Urinalysis Comment CULTURE INDICATED Blood Urea Nitrogen 33 MG/DL Creatinine 2.27 MG/DL Random Glucose 92 MG/DL Total Protein 5.8 GM/DL Albumin 2.9 GM/DL Calcium Level 8.3 MG/DL Alkaline Phosphatase 53 U/L Aspartate Amino Transf (AST/SGOT) 25 U/L Alanine Aminotransferase (ALT/SGPT) 42 U/L Total Bilirubin 0.3 MG/DL Sodium Level 142 MEQ/L Potassium Level 3.0 MEQ/L Chloride Level 111 MEQ/L Carbon Dioxide Level 23.2 MEQ/L Anion Gap 8 MEQ/L Estimat Glomerular Filtration Rate 22 ML/MIN Lipase 237 U/L [facility] Medical Decision Making Medical Screen Exam Complete: Yes Emergency Medical Condition: Yes Medical Record Reviewed: Yes Interpretation(s) Laboratory Tests Test 07/28/17 11:01 07/28/17 11:09 07/28/17 12:10 07/28/17 13:40 Neutrophils (%) (Auto) 80.0 % (16.0-70.0) Monocytes (%) (Auto) 8.2 % (0.0-8.0) Lymphocytes # (Auto) 0.8 TH/MM3 (1.0-4.8) Urine Leukocyte Esterase LARGE (NEG) Urine WBC 39 /hpf (0-5) Urine Bacteria RARE /hpf (NONE) Urine Mucus FEW /lpf (OCC) Blood Urea Nitrogen 33 MG/DL (7-18) Creatinine 2.27 MG/DL (0.50-1.00) Total Protein 5.8 GM/DL (6.4-8.2) Albumin 2.9 GM/DL (3.4-5.0) Calcium Level 8.3 MG/DL (8.5-10.1) Potassium Level 3.0 MEQ/L (3.5-5.1) Chloride Level 111 MEQ/L (98-107) Estimat Glomerular Filtration Rate 22 ML/MIN (>89) Differential Diagnosis Dehydration versus metabolic issues versus renal failure versus medication side effects versus acute intra-abdominal processes Narrative Course Lab work shows elevated BUN and creatinine which is somewhat baseline for this patient. Her potassium is low and p.o. potassium has been given in the ER. She was given IV fluids and nausea medication and did not have further vomiting episodes in the ER. However, she does have a UTI and IV antibiotics were initiated. She does not appear to be doing well as an outpatient at this point , my plan would be to admit her for further treatment of dehydration, potassium disruption, UTI. Case was discussed with Dr. Vasquez for admission. Diagnosis Primary Impression: Nausea and vomiting Additional Impressions: Hypokalemia UTI (urinary tract infection) Admitting Information Admitting Physician Requests: Admit Jocelyn Mayberry MD Jul 28, 2017 10:45
[2017-07-28 11:33] LABS: AUTOMATED NEUTROPHIL # 6.3 TH/MM3 (1.8-7.7); BASOPHIL % 0.3 % (0.0-2.0); EOSINOPHIL # 0.1 TH/MM3 (0-0.4); HEMATOCRIT 43.3 % (35.0-46.0); HEMOGLOBIN 14.7 GM/DL (11.6-15.3); LYMPH % 10.5 % (9.0-44.0); LYMPHOCYTE # 0.8 TH/MM3 (1.0-4.8); MEAN CORPUSCULAR HEMOGLOBIN 32.9 PG (27.0-34.0); MEAN CORPUSCULAR HGB CONC 33.9 % (32.0-36.0); MONO % 8.2 % (0.0-8.0); MONOCYTE # 0.6 TH/MM3 (0-0.9); PLATELET COUNT 175 TH/MM3 (150-450); RED BLOOD COUNT 4.46 MIL/MM3 (4.00-5.30); RED CELL DISTRIBUTION WIDTH 15.3 % (11.6-17.2); WHITE BLOOD COUNT 7.8 TH/MM3 (4.0-11.0)
[2017-07-28] MEDS ORDERED: MONT10TA4 PO (11:42)
[2017-07-28] MEDS ORDERED: PROTEIN PO (11:42)
[2017-07-28] MEDS ORDERED: BUDE3CAP PO (11:42)
[2017-07-28] MEDS ORDERED: MAGNESIUM PO (11:42)
[2017-07-28] MEDS ORDERED: APIX5TAB PO (11:42)
[2017-07-28] MEDS ORDERED: MIRA3350 PO (11:42)
[2017-07-28] MEDS ORDERED: ASCO500T PO (11:42)
[2017-07-28] MEDS ORDERED: DULE100A INH (11:42)
[2017-07-28] MEDS ORDERED: TACR1CAP PO ×2 (11:42)
[2017-07-28] MEDS ORDERED: CALC600T10 PO (11:42)
[2017-07-28] MEDS ORDERED: TOPR100T PO (11:42)
[2017-07-28] MEDS ORDERED: ACYC400T PO (11:42)
[2017-07-28] MEDS ORDERED: PANT40TA3 PO (11:42)
[2017-07-28] MEDS ORDERED: DOCU100C15 PO (11:42)
[2017-07-28] MEDS ORDERED: DIFL200T PO (11:45)
[2017-07-28] MEDS ORDERED: PRED5TAB PO (11:45)
[2017-07-28] MEDS ORDERED: AZIT250T3 PO (11:45)
[2017-07-28 13:00] VITALS: BP 134/80; PULSE 61; RESP 18; O2SAT 98
[2017-07-28 13:05] LABS: ALBUMIN 2.9 GM/DL (3.4-5.0); ALKALINE PHOSPHATASE 53 U/L (45-117); ALT (GPT) 42 U/L (10-53); AST (GOT) 25 U/L (15-37); BICARBONATE 23.2 MEQ/L (21.0-32.0); BLOOD UREA NITROGEN 33 MG/DL (7-18); CALCIUM 8.3 MG/DL (8.5-10.1); CHLORIDE 111 MEQ/L (98-107); CREATININE 2.27 MG/DL (0.50-1.00); GLOMERULAR FILTRATION RATE 22 ML/MIN (>89); GLUCOSE,RANDOM 92 MG/DL (74-106); SODIUM (NA) 142 MEQ/L (136-145); TOTAL BILIRUBIN ADULT 0.3 MG/DL (0.2-1.0); TOTAL PROTEIN 5.8 GM/DL (6.4-8.2)
[2017-07-28 13:18] LABS: BACTERIA, URINE RARE /hpf; BILIRUBIN, URINE NEG (NEG); BLOOD, URINE NEG (NEG); GLUCOSE,URINE NEG (NEG); HYALINE CAST, URINE 3 /lpf (RARE); KETONE, URINE NEG (NEG); MUCUS URINE FEW /lpf (OCC); NITRITE,URINE NEG (NEG); RENAL EPITHELIAL CELLS <1 /hpf; SQUAMOUS EPITHELIAL CELL URINE 2 /hpf (0-5); URINE COLOR LIGHT-YELLOW (YELLW/STRAW); URINE LEUKOCYTE ESTERASE LARGE (NEG)
[2017-07-28] MEDS ORDERED: PIPERACIL-TAZO 4.5 GM PREMIX 100 ML IV STA (13:26)
[2017-07-28] MEDS ORDERED: POTASSIUM CHLORIDE 10 MEQ CONTROLLED RELEASE TAB PO ONE (13:30)
[2017-07-28] MEDS ORDERED: ACETAMINOPHEN 325 MG TAB PO PRN (14:15)
[2017-07-28] MEDS ORDERED: MAGNESIUM HYDROXIDE SUSP 30 ML CUP PO PRN (14:15)
[2017-07-28] MEDS ORDERED: SENNOSIDES 8.6 MG TAB PO PRN (14:15)
[2017-07-28] MEDS ORDERED: NALOXONE HCL 0.4 MG/ML AMP IV PUSH PRN (14:15)
[2017-07-28] MEDS ORDERED: LACTULOSE SYRUP 20 GM/30 ML CUP PO PRN (14:15)
[2017-07-28] MEDS ORDERED: ONDANSETRON HCL 4 MG/2 ML VIAL IVP PRN (14:15)
[2017-07-28] MEDS ORDERED: BISACODYL 10 MG SUPP RECTAL PRN (14:15)
[2017-07-28] MEDS: SODIUM CHLOR 0.9% 1000 ML INJ 1,000 ML IV SCH ×2 (15:12→16:12)
[2017-07-28 17:13] VITALS: BP 112/69; PULSE 67; RESP 18; TEMP 97.6; O2SAT 97
--- NOTE | 2017-07-28 17:33 | HHI.HP ---
[facility] Non-Staff Admission Diagnosis Nausea and vomiting/dehydration/hypokalemia/UTI Diagnoses: Travel History International Travel<30 Days: No Contact w/Intl Traveler <30 Da: No Traveled to Known Affected Are: No Past Family Social History Allergies: Coded Allergies: diatrizoate meglumine (Unverified Allergy, Severe, Shortness of Breath, ) enoxaparin (Unverified Allergy, Severe, 12/07/16) HIT gadobenic acid (Unverified Allergy, Severe, Shortness of Breath, 12/07/16) gadodiamide (Unverified Allergy, Severe, Shortness of Breath, 12/07/16) gadoteridol (Unverified Allergy, Severe, Shortness of Breath, 12/07/16) haloperidol (Unverified Allergy, Severe, 12/07/16) heparin (porcine) (Unverified Allergy, Severe, 12/07/16) HIT iodixanol (Unverified Allergy, Severe, Shortness of Breath, 12/07/16) iohexol (Unverified Allergy, Severe, Shortness of Breath, 12/07/16) Uncoded Allergies: TEGADERM (Allergy, Severe, 11/24/14) Physical Exam Vital Signs Vital Signs Date Time Temp Pulse Resp B/P (MAP) Pulse Ox O2 Delivery O2 Flow Rate FiO2 07/28/17 17:13 97.6 67 18 112/69 (83) 97 07/28/17 15:38 07/28/17 13:00 61 18 134/80 (98) 98 Room Air 07/28/17 10:39 73 18 138/90 (106) 100 Room Air 07/28/17 10:33 73 18 98 Room Air 07/28/17 10:33 18 07/28/17 10:23 97.3 71 20 141/89 (106) 98 Physical Exam GENERAL: This is a well-nourished, well-developed patient, in no apparent distress. SKIN: No rashes, ecchymoses or lesions. Cool and dry. HEAD: Atraumatic. Normocephalic. No temporal or scalp tenderness. EYES: Pupils equal round and reactive. Extraocular motions intact. No scleral icterus. No injection or drainage. ENT: Nose without bleeding, purulent drainage or septal hematoma. Throat without erythema, tonsillar hypertrophy or exudate. Uvula midline. Airway patent. NECK: Trachea midline. No JVD or lymphadenopathy. Supple, nontender, no meningeal signs. CARDIOVASCULAR: Regular rate and rhythm without murmurs, gallops, or rubs. RESPIRATORY: Clear to auscultation. Breath sounds equal bilaterally. No wheezes , rales, or rhonchi. GASTROINTESTINAL: Abdomen soft, non-tender, nondistended. No hepato-splenomegaly , or palpable masses. No guarding. MUSCULOSKELETAL: Extremities without clubbing, cyanosis, or edema. No joint tenderness, effusion, or edema noted. No calf tenderness. Negative Homans sign bilaterally. NEUROLOGICAL: Awake and alert. Cranial nerves II through XII intact. Motor and sensory grossly within normal limits. Five out of 5 muscle strength in all muscle groups. Normal speech. Laboratory Laboratory Tests Test 07/28/17 11:01 07/28/17 11:09 07/28/17 12:10 07/28/17 13:40 White Blood Count 7.8 Red Blood Count 4.46 Hemoglobin 14.7 Hematocrit 43.3 Mean Corpuscular Volume 97.0 Mean Corpuscular Hemoglobin 32.9 Mean Corpuscular Hemoglobin Concent 33.9 Red Cell Distribution Width 15.3 Platelet Count 175 Mean Platelet Volume 8.0 Neutrophils (%) (Auto) 80.0 Lymphocytes (%) (Auto) 10.5 Monocytes (%) (Auto) 8.2 Eosinophils (%) (Auto) 1.0 Basophils (%) (Auto) 0.3 Neutrophils # (Auto) 6.3 Lymphocytes # (Auto) 0.8 Monocytes # (Auto) 0.6 Eosinophils # (Auto) 0.1 Basophils # (Auto) 0.0 CBC Comment DIFF FINAL Differential Comment Urine Color LIGHT-YELLOW Urine Turbidity CLEAR Urine pH 5.0 Urine Specific [place] 1.009 Urine Protein NEG Urine Glucose (UA) NEG Urine Ketones NEG Urine Occult Blood NEG Urine Nitrite NEG Urine Bilirubin NEG Urine Urobilinogen LESS THAN 2.0 Urine Leukocyte Esterase LARGE Urine RBC 1 Urine WBC 39 Urine Squamous Epithelial Cells 2 Urine Renal Epithelial Cells <1 Urine Bacteria RARE Urine Hyaline Casts 3 Urine Mucus FEW Microscopic Urinalysis Comment CULTURE INDICATED Blood Urea Nitrogen 33 Creatinine 2.27 Random Glucose 92 Total Protein 5.8 Albumin 2.9 Calcium Level 8.3 Alkaline Phosphatase 53 Aspartate Amino Transf (AST/SGOT) 25 Alanine Aminotransferase (ALT/SGPT) 42 Total Bilirubin 0.3 Sodium Level 142 Potassium Level 3.0 Chloride Level 111 Carbon Dioxide Level 23.2 Anion Gap 8 Estimat Glomerular Filtration Rate 22 Lipase 237 Lactic Acid Level 0.4 Date/Time Source Procedure Growth Status 07/28/17 11:06 Blood Peripheral Aerobic Blood Culture Pending Received 07/28/17 11:06 Blood Peripheral Anaerobic Blood Culture Pending Received 07/28/17 11:09 Urine Clean Catch Urine Culture Pending Received Result Diagram: 07/28/17 1101 07/28/17 1210 [place]o VTE Risk Assessment Caprini Risk Assessment Model Point Value = 1 Point Value = 2 Point Value = 3 Point Value = 5 Age 41-60 Minor surgery BMI > 25 kg/m2 Swollen legs Varicose veins or History of unexplained or recurrent spontaneous Oral contraceptives or hormone replacement Sepsis (< 1 month) Serious lung disease, including pneumonia (< 1 month) Abnormal pulmonary function Acute myocardial infarction Congestive heart failure (< 1 month) History of inflammatory bowel disease Medical patient at bed rest Age 61-74 Arthroscopic surgery Major open surgery (> 45 min) Laparoscopic surgery (> 45 min) Malignancy Confined to bed (> 72 hours) Immobilizing plaster cast Central venous access Age >= 75 History of VTE Family history of VTE Factor V Leiden Prothrombin [id number] Lupus anticoagulant Anticardiolipin antibodies Elevated serum homocysteine Heparin-induced thrombocytopenia Other congenital or acquired thrombophilia Stroke (< 1 month) Elective arthroplasty Hip, pelvis, or leg fracture Acute spinal cord injury (< 1 month) Prophylaxis Regimen Total Risk Factor Score Risk Level Prophylaxis Regimen 0-1 Low Early ambulation 2 Moderate Order ONE of the following: *Sequential Compression Device (SCD) *Heparin 5000 units SQ BID 3-4 Higher Order ONE of the following medications: *Heparin 5000 units SQ TID *Enoxaparin/Lovenox 40 mg SQ daily (WT < 150 kg, CrCl > 30 mL/min) *Enoxaparin/Lovenox 30 mg SQ daily (WT < 150 kg, CrCl > 10-29 mL/min) *Enoxaparin/Lovenox 30 mg SQ BID (WT < 150 kg, CrCl > 30 mL/min) AND/OR *Sequential Compression Device (SCD) 5 or more Highest Order ONE of the following medications: *Heparin 5000 units SQ TID (Preferred with Epidurals) *Enoxaparin/Lovenox 40 mg SQ daily (WT < 150 kg, CrCl > 30 mL/min) *Enoxaparin/Lovenox 30 mg SQ daily (WT < 150 kg, CrCl > 10-29 mL/min) *Enoxaparin/Lovenox 30 mg SQ BID (WT < 150 kg, CrCl > 30 mL/min) AND *Sequential Compression Device (SCD) Physician Certification Order for Inpatient Services The services are ordered in accordance with Medicare regulations or non- Medicare payer requirements, as applicable. In the case of services not specified as inpatient-only, they are appropriately provided as inpatient services in accordance with the 2-midnight benchmark. days is the estimated time the patient will need to remain in the hospital, assuming treatment plan goals are met and no additional complications. Michelle Vasquez DO Jul 28, 2017 17:33
[2017-07-28] MEDS ORDERED: MOMETASONE FORMOTEROL INH SCH (21:00)
[2017-07-28] MEDS: CALCIUM/VITAMIN D 250 MG/125 U TAB PO SCH (21:07)
[2017-07-28] MEDS: SODIUM CHLORIDE 0.9% FLUSH 10 ML FLUSH IV FLUSH SCH (21:07)
[2017-07-28] MEDS: APIXABAN 5 MG TABLET PO SCH (21:07)
[2017-07-28] MEDS: MONTELUKAST SODIUM 10 MG TAB PO SCH (21:07)
[2017-07-28 21:29] VITALS: BP 155/96; PULSE 68; RESP 18; TEMP 97.9; O2SAT 99
[2017-07-28] MEDS: TACROLIMUS 0.5 MG CAP PO SCH (22:34)
[2017-07-28] MEDS: ACYCLOVIR 200 MG CAP PO SCH (22:48)
--- NOTE | 2017-07-28 22:55 | HHI.HP ---
HPI Service [facility] Primary Care Physician Non-Staff Admission Diagnosis Nausea and vomiting/dehydration/hypokalemia/UTI Diagnoses: Chief Complaint: nausea and diarrhea, not improving Travel History International Travel<30 Days: No Contact w/Intl Traveler <30 Da: No Traveled to Known Affected Are: No History of Present Illness Mrs. Noe is a 57-year-old female with a history of acute myeloid leukemia, heparin-induced thrombocytopenia, DVTs on Eliquis, hypertension, acute myeloid leukemia s/p bone marrow transplant, on tacrolimus, and anemia who presented to the emergency room on 07/28/2017 for evaluation of nausea, vomiting, and diarrhea > 1 week. She's been seen here previously for treatment -a stool culture was positive on 07/26/2017 for norovirus. A urinalysis in the emergency department was consistent with UTI. She was hypokalemic and also with slightly worsened renal function. Given the duration of her symptoms and other medical complications described above, she was admitted to the hospitalist service for further medical management. The patient is seen in the CDU. Patient states that her symptoms have been going on since 07/23/2017. Her symptoms have included chills with vomiting and mostly diarrhea. Her most recent episode of diarrhea was a few hours before my visit. She reports she is now having about 3 episodes of diarrhea day. Her last vomiting occurred on Monday or Monday. She was concerned because her symptoms were not getting much better despite the passage of times and presented to the emergency room for treatment. At the time of my visit, she is feeling improved . She denies any symptoms of UTI including dysuria, hematuria , frequency. Review of Systems Except as stated in HPI: all other systems reviewed are Neg Past Family Social History Past Medical History Acute myeloid leukemia Heparin-induced thrombocytopenia PE and DVTs (right jugular vein, right arm, left leg) on Eliquis Hypertension Acute myeloid leukemia status post bone marrow transplant and on tacrolimus Anemia Denies diabetes mellitus, atrial fibrillation, diabetes mellitus, CVA, seizures , or hypothyroidism . Past Surgical History Bilateral cataract surgery 2016 Tonsillectomy Cholecystectomy 1990 D&C Bone marrow transplant 01/15/2014 Heart catheterization . Reported Medications Reported Meds & Active Scripts Active Reported Azithromycin 250 Mg Tab 250 Mg PO DIRECTED Take 2 tabs (500 mg) on day 1 then 1 tab daily x 4 days. Prednisone 5 Mg Tab 5 Mg PO -- Diflucan (Fluconazole) 200 Mg Tab 200 Mg PO DAILY Tacrolimus 1 Mg Cap 0.5 Mg PO HS Tacrolimus 1 Mg Cap 1 Mg PO DAILY Miralax Powder (Polyethylene Glycol 3350 Powder) 17 Gm Powd 17 Gm PO DAILY Mix and dissolve one measuring cap-ful (17 grams) in water or juice. Pantoprazole (Pantoprazole Sodium) 40 Mg Tab 40 Mg PO DAILY Montelukast (Montelukast Sodium) 10 Mg Tab 10 Mg PO HS Toprol XL (Metoprolol Succinate) 100 Mg Tab 100 Mg PO DAILY [magnesium + protein] 133 Mg PO BID Dulera 120 Act Inh (Mometasone-Formoterol 120 Act Inh) 100-5 Mcg/Act Inh 2 Puff INH BID Docusate Sodium 100 Mg Cap 100 Mg PO BID PRN Calcium + D3 (Calcium Carbonate-Cholecalciferol) 600-200 Mg-Unit Tab 1 Tab PO BID Ascorbic Acid 500 Mg Tab 100 Mg PO BID Eliquis (Apixaban) 5 Mg Tab 5 Mg PO BID Acyclovir 400 Mg Tab 400 Mg PO BID Budesonide DR (Budesonide) 3 Mg Capdr 6 Mg PO BID . Allergies: Coded Allergies: diatrizoate meglumine (Unverified Allergy, Severe, Shortness of Breath, ) enoxaparin (Unverified Allergy, Severe, 12/07/16) HIT gadobenic acid (Unverified Allergy, Severe, Shortness of Breath, 12/07/16) gadodiamide (Unverified Allergy, Severe, Shortness of Breath, 12/07/16) gadoteridol (Unverified Allergy, Severe, Shortness of Breath, 12/07/16) haloperidol (Unverified Allergy, Severe, 12/07/16) heparin (porcine) (Unverified Allergy, Severe, 12/07/16) HIT iodixanol (Unverified Allergy, Severe, Shortness of Breath, 12/07/16) iohexol (Unverified Allergy, Severe, Shortness of Breath, 12/07/16) Uncoded Allergies: TEGADERM (Allergy, Severe, 11/24/14) Family History Multiple family members with cancer including breast, liver, and brain . Social History Tobacco: Never Alcohol: Denies Illicit Drugs: Denies [place] from [place] . Physical Exam Vital Signs Vital Signs Date Time Temp Pulse Resp B/P (MAP) Pulse Ox O2 Delivery O2 Flow Rate FiO2 07/28/17 21:29 97.9 68 18 155/96 (115) 99 07/28/17 18:02 22 07/28/17 17:13 97.6 67 18 112/69 (83) 97 07/28/17 15:38 07/28/17 13:00 61 18 134/80 (98) 98 Room Air 07/28/17 10:39 73 18 138/90 (106) 100 Room Air 07/28/17 10:33 73 18 98 Room Air 07/28/17 10:33 18 07/28/17 10:23 97.3 71 20 141/89 (106) 98 Physical Exam GENERAL: This is an overweight female patient, in no apparent distress. SKIN: No rashes. Cool and dry. Multiple areas of ecchymosis noted on arms HEAD: Atraumatic. Normocephalic. EYES: No scleral icterus. No injection or drainage. ENT: Nose without bleeding, purulent drainage. NECK: Trachea midline. No JVD or lymphadenopathy. CARDIOVASCULAR: Regular rate and rhythm without murmurs, gallops, or rubs. RESPIRATORY: Clear to auscultation. Breath sounds equal bilaterally. No wheezes , rales, or rhonchi. GASTROINTESTINAL: Hyperactive bowel sounds. Abdomen soft, non-tender, nondistended. No guarding. MUSCULOSKELETAL: Extremities without clubbing, cyanosis, or edema. No calf tenderness. NEUROLOGICAL: Awake and alert. Motor and sensory grossly within normal limits. Normal speech. . Laboratory Laboratory Tests Test 07/28/17 11:01 07/28/17 11:09 07/28/17 12:10 07/28/17 13:40 White Blood Count 7.8 Red Blood Count 4.46 Hemoglobin 14.7 Hematocrit 43.3 Mean Corpuscular Volume 97.0 Mean Corpuscular Hemoglobin 32.9 Mean Corpuscular Hemoglobin Concent 33.9 Red Cell Distribution Width 15.3 Platelet Count 175 Mean Platelet Volume 8.0 Neutrophils (%) (Auto) 80.0 Lymphocytes (%) (Auto) 10.5 Monocytes (%) (Auto) 8.2 Eosinophils (%) (Auto) 1.0 Basophils (%) (Auto) 0.3 Neutrophils # (Auto) 6.3 Lymphocytes # (Auto) 0.8 Monocytes # (Auto) 0.6 Eosinophils # (Auto) 0.1 Basophils # (Auto) 0.0 CBC Comment DIFF FINAL Differential Comment Tacrolimus (Prograf) Level 18.3 Urine Color LIGHT-YELLOW Urine Turbidity CLEAR Urine pH 5.0 Urine Specific [place] 1.009 Urine Protein NEG Urine Glucose (UA) NEG Urine Ketones NEG Urine Occult Blood NEG Urine Nitrite NEG Urine Bilirubin NEG Urine Urobilinogen LESS THAN 2.0 Urine Leukocyte Esterase LARGE Urine RBC 1 Urine WBC 39 Urine Squamous Epithelial Cells 2 Urine Renal Epithelial Cells <1 Urine Bacteria RARE Urine Hyaline Casts 3 Urine Mucus FEW Microscopic Urinalysis Comment CULTURE INDICATED Blood Urea Nitrogen 33 Creatinine 2.27 Random Glucose 92 Total Protein 5.8 Albumin 2.9 Calcium Level 8.3 Alkaline Phosphatase 53 Aspartate Amino Transf (AST/SGOT) 25 Alanine Aminotransferase (ALT/SGPT) 42 Total Bilirubin 0.3 Sodium Level 142 Potassium Level 3.0 Chloride Level 111 Carbon Dioxide Level 23.2 Anion Gap 8 Estimat Glomerular Filtration Rate 22 Lipase 237 Lactic Acid Level 0.4 Test 07/28/17 22:45 Date/Time Source Procedure Growth Status 07/28/17 11:06 Blood Peripheral Aerobic Blood Culture Pending Received 07/28/17 11:06 Blood Peripheral Anaerobic Blood Culture Pending Received 07/28/17 11:09 Urine Clean Catch Urine Culture Pending Received Result Diagram: 07/28/17 1101 07/28/17 1210 Caprini VTE Risk Assessment Caprini VTE Risk Assessment: Mod/High Risk (score >= 2) Caprini Risk Assessment Model Point Value = 1 Point Value = 2 Point Value = 3 Point Value = 5 Age 41-60 Minor surgery BMI > 25 kg/m2 Swollen legs Varicose veins or History of unexplained or recurrent spontaneous Oral contraceptives or hormone replacement Sepsis (< 1 month) Serious lung disease, including pneumonia (< 1 month) Abnormal pulmonary function Acute myocardial infarction Congestive heart failure (< 1 month) History of inflammatory bowel disease Medical patient at bed rest Age 61-74 Arthroscopic surgery Major open surgery (> 45 min) Laparoscopic surgery (> 45 min) Malignancy Confined to bed (> 72 hours) Immobilizing plaster cast Central venous access Age >= 75 History of VTE Family history of VTE Factor V Leiden Prothrombin [id number] Lupus anticoagulant Anticardiolipin antibodies Elevated serum homocysteine Heparin-induced thrombocytopenia Other congenital or acquired thrombophilia Stroke (< 1 month) Elective arthroplasty Hip, pelvis, or leg fracture Acute spinal cord injury (< 1 month) Prophylaxis Regimen Total Risk Factor Score Risk Level Prophylaxis Regimen 0-1 Low Early ambulation 2 Moderate Order ONE of the following: *Sequential Compression Device (SCD) *Heparin 5000 units SQ BID 3-4 Higher Order ONE of the following medications: *Heparin 5000 units SQ TID *Enoxaparin/Lovenox 40 mg SQ daily (WT < 150 kg, CrCl > 30 mL/min) *Enoxaparin/Lovenox 30 mg SQ daily (WT < 150 kg, CrCl > 10-29 mL/min) *Enoxaparin/Lovenox 30 mg SQ BID (WT < 150 kg, CrCl > 30 mL/min) AND/OR *Sequential Compression Device (SCD) 5 or more Highest Order ONE of the following medications: *Heparin 5000 units SQ TID (Preferred with Epidurals) *Enoxaparin/Lovenox 40 mg SQ daily (WT < 150 kg, CrCl > 30 mL/min) *Enoxaparin/Lovenox 30 mg SQ daily (WT < 150 kg, CrCl > 10-29 mL/min) *Enoxaparin/Lovenox 30 mg SQ BID (WT < 150 kg, CrCl > 30 mL/min) AND *Sequential Compression Device (SCD) Assessment and Plan Assessment and Plan Mrs. Noe is a 57-year-old female with a history of acute myeloid leukemia, heparin-induced thrombocytopenia, DVTs on Eliquis, hypertension, acute myeloid leukemia s/p bone marrow transplant, on tacrolimus, and anemia who presented to the emergency room on 07/28/2017 for evaluation of nausea, vomiting, and diarrhea > 1 week. She's been seen here previously for treatment -a stool culture was positive on 07/26/2017 for norovirus. A urinalysis in the emergency department was consistent with UTI. She was hypokalemic and also with slightly worsened renal function. Given the duration of her symptoms and other medical complications described above, she was admitted to the hospitalist service for further medical management. UTI suspected -Urinalysis consistent with UTI -Ceftriaxone 1 g IV every 24 hours -Follow urine culture results and adjust treatment if indicated Norovirus gastroenteritis -stool culture was positive on 07/26/2017 for norovirus -supportive treatment with IVF hydration with normal saline at 100 cc/h and zofran for n/v Acute on chronic renal failure -BUN 33, creatinine 2.27, estimated GFR 22 -somewhat worse than previous labs -IV fluid hydration with normal saline at 100 cc/h -Avoid nephrotoxins -Repeat BMP in a.m. and follow trends and renal indices Hypokalemia -Initial potassium 3.0 -Replacement given in emergency department -Recheck BMP in a.m. and follow potassium results and replace as needed Acute myeloid leukemia status post bone marrow transplant and on tacrolimus -Resume home tacrolimus -Monitor CBC DVT prophylaxis -Continue home Eliquis . Discussed Condition With Dr. Vasquez, patient, and RN. . Physician Certification 2 Midnight Certification Type: Admission for Inpatient Services Order for Inpatient Services The services are ordered in accordance with Medicare regulations or non- Medicare payer requirements, as applicable. In the case of services not specified as inpatient-only, they are appropriately provided as inpatient services in accordance with the 2-midnight benchmark. Estimated LOS (days): 3 days is the estimated time the patient will need to remain in the hospital, assuming treatment plan goals are met and no additional complications. Post-Hospital Plan: Home Michelle Mercado Jul 28, 2017 22:55
[2017-07-29] VITALS (8 sets, daily range): BP systolic 120–155; BP diastolic 66–84; PULSE 57–73; RESP 16–18; TEMP 97.5–98; O2SAT 95–98
[2017-07-29] MEDS: cefTRIAXone INJ 1,000 MG in SODIUM CHLORIDE 0.9% INJ 100 ML IV SCH ×2 (00:08→23:18)
[2017-07-29 08:57] LABS: AUTOMATED NEUTROPHIL # 4.7 TH/MM3 (1.8-7.7); BASOPHIL % 0.2 % (0.0-2.0); EOSINOPHIL % 0.5 % (0.0-4.0); HEMATOCRIT 39.2 % (35.0-46.0); HEMOGLOBIN 12.9 GM/DL (11.6-15.3); LYMPH % 13.7 % (9.0-44.0); LYMPHOCYTE # 0.8 TH/MM3 (1.0-4.8); MEAN CELL VOLUME 97.6 FL (80.0-100.0); MEAN CORPUSCULAR HEMOGLOBIN 32.1 PG (27.0-34.0); MEAN CORPUSCULAR HGB CONC 32.9 % (32.0-36.0); MONO % 8.3 % (0.0-8.0); MONOCYTE # 0.5 TH/MM3 (0-0.9); NEUT % 77.3 % (16.0-70.0); PLATELET COUNT 149 TH/MM3 (150-450); RED BLOOD COUNT 4.01 MIL/MM3 (4.00-5.30); RED CELL DISTRIBUTION WIDTH 14.9 % (11.6-17.2); WHITE BLOOD COUNT 6.1 TH/MM3 (4.0-11.0)
[2017-07-29] MEDS: SODIUM CHLORIDE 0.9% FLUSH 10 ML FLUSH IV FLUSH SCH ×2 (09:00→21:00)
[2017-07-29 09:17] LABS: BICARBONATE 17.4 MEQ/L (21.0-32.0); CALCIUM 8.3 MG/DL (8.5-10.1); CREATININE 1.94 MG/DL (0.50-1.00)
[2017-07-29] MEDS: TACROLIMUS 1 MG CAP PO SCH (09:39)
[2017-07-29] MEDS: ACYCLOVIR 200 MG CAP PO SCH ×2 (09:39→21:29)
[2017-07-29] MEDS: predniSONE 5 MG TAB PO SCH (09:40)
[2017-07-29] MEDS: METOPROLOL SUCCINATE 50 MG EXTENDED RELEASE TAB PO SCH (09:42)
[2017-07-29] MEDS: FLUCONAZOLE 200 MG TAB PO SCH (09:43)
[2017-07-29] MEDS: PANTOPRAZOLE SOD 40 MG DELAYED RELEASE TAB PO SCH (09:43)
[2017-07-29] MEDS: CALCIUM/VITAMIN D 250 MG/125 U TAB PO SCH ×2 (09:44→21:29)
[2017-07-29] MEDS: APIXABAN 5 MG TABLET PO SCH ×2 (09:44→21:29)
--- NOTE | 2017-07-29 10:16 | HHI.PR ---
Subjective Remarks Follow-up nausea, vomiting, diarrhea, UTI. Patient states that she feels much better today. Still having diarrhea, but less than yesterday. No nausea or vomiting this morning. She wants to her diet to be advanced. Objective Vitals Vital Signs Date Time Temp Pulse Resp B/P (MAP) Pulse Ox O2 Delivery O2 Flow Rate FiO2 07/29/17 08:00 97.8 62 18 136/69 (91) 97 07/29/17 04:29 98.0 64 18 146/70 (95) 97 07/29/17 00:02 97.9 57 16 155/84 (107) 98 07/28/17 21:29 97.9 68 18 155/96 (115) 99 07/28/17 18:02 22 07/28/17 17:13 97.6 67 18 112/69 (83) 97 07/28/17 15:38 07/28/17 13:00 61 18 134/80 (98) 98 Room Air 07/28/17 10:39 73 18 138/90 (106) 100 Room Air 07/28/17 10:33 73 18 98 Room Air 07/28/17 10:33 18 07/28/17 10:23 97.3 71 20 141/89 (106) 98 I/O 07/28/17 07/28/17 07/28/17 07/29/17 07/29/17 07/29/17 07:00 15:00 23:00 07:00 15:00 23:00 Intake Total 1000 ml 240 ml 900 ml Balance 1000 ml 240 ml 900 ml Intake Oral 240 ml IV Total 1000 ml 900 ml # Voids 1 Result Diagram: 07/29/17 0759 07/29/17 0759 Objective Remarks General: No acute distress. Heart: Regular rate and rhythm. No murmur. Lungs: Clear to auscultation bilaterally. No wheezes, rales, or rhonchi. Breathing is nonlabored. Abdomen: Soft, nontender, nondistended. Extremities: No lower extremity edema. Psych: Alert and oriented. Procedures None Urinary Catheter: No Vascular Central Line Catheter: No A/P Assessment and Plan 1. UTI: Continue Rocephin. Urine culture pending. Patient remains afebrile. Leukocytosis has resolved. 2. Norovirus gastroenteritis: Stool culture positive on 07/26/17 for Norovirus. Continue supportive treatment with IV fluids. Nausea/vomiting improved. Diarrhea improving. Advance diet. 3. Hypokalemia: Supplement potassium. Recheck labs in the morning. 4. Acute myeloid leukemia: Status post bone marrow transplant. Continue tacrolimus. 5. DVT prophylaxis: Continue Eliquis. Discharge Planning Possible discharge home tomorrow pending further clinical improvement. Suleiman Iglesias MD Jul 29, 2017 10:16
[2017-07-29] MEDS ORDERED: MAGNESIUM OXIDE 400 MG TAB PO ONE (11:00)
[2017-07-29] MEDS ORDERED: POTASSIUM CHLORIDE 10 MEQ CAP PO ONE (11:00)
[2017-07-29] MEDS: NS + KCL 20 MEQ INJ 1,000 ML IV SCH ×2 (12:15→23:19)
[2017-07-29] MEDS ORDERED: TACROLIMUS 0.5 MG CAP PO SCH (21:00)
[2017-07-29] MEDS: MONTELUKAST SODIUM 10 MG TAB PO SCH (21:28)
[2017-07-29] MEDS: TACROLIMUS 0.5 MG CAP PO SCH (21:29)
[2017-07-30 01:05] VITALS: PULSE 66
[2017-07-30] MEDS: APIXABAN 5 MG TABLET PO SCH (07:35)
[2017-07-30] MEDS: NS + KCL 20 MEQ INJ 1,000 ML IV SCH (07:35)
[2017-07-30] MEDS: PANTOPRAZOLE SOD 40 MG DELAYED RELEASE TAB PO SCH (07:35)
[2017-07-30] MEDS: ACYCLOVIR 200 MG CAP PO SCH (07:35)
[2017-07-30] MEDS: FLUCONAZOLE 200 MG TAB PO SCH (07:36)
[2017-07-30] MEDS: SODIUM CHLORIDE 0.9% FLUSH 10 ML FLUSH IV FLUSH SCH (07:36)
[2017-07-30] MEDS: predniSONE 5 MG TAB PO SCH (07:36)
[2017-07-30] MEDS: METOPROLOL SUCCINATE 50 MG EXTENDED RELEASE TAB PO SCH (07:36)
[2017-07-30] MEDS: CALCIUM/VITAMIN D 250 MG/125 U TAB PO SCH (07:36)
[2017-07-30] MEDS: TACROLIMUS 1 MG CAP PO SCH (07:41)
[2017-07-30 08:00] VITALS: BP 174/92; PULSE 62; RESP 18; TEMP 97.7; O2SAT 96
[2017-07-30 08:52] VITALS: PULSE 69
[2017-07-30 08:59] LABS: CALCIUM 8.4 MG/DL (8.5-10.1); CREATININE 1.69 MG/DL (0.50-1.00); MAGNESIUM 1.3 MG/DL (1.5-2.5)
[2017-07-30] MEDS ORDERED: MAGNESIUM OXIDE 400 MG TAB PO ONE (09:15)
[2017-07-30] MEDS ORDERED: CEPH500T PO (09:24)
--- NOTE | 2017-07-30 09:25 | HHI.DCPOC ---
Discharge Care Plan Diagnosis: (1) Gastroenteritis due to norovirus (2) Hypomagnesemia (3) Hypokalemia (4) UTI (urinary tract infection) (5) Nausea and vomiting Goals to Promote Your Health * To prevent worsening of your condition and complications * To maintain your health at the optimal level Directions to Meet Your Goals Take your medications as prescribed Follow your dietary instruction Follow activity as directed Keep your appointments as scheduled Take your immunizations and boosters as scheduled If your symptoms worsen call your PCP, if no PCP go to Urgent Care Center or Emergency Room Smoking is Dangerous to Your Health. Avoid second hand smoke Call the 24-hour hour crisis hotline for domestic abuse at Suleiman Iglesias MD Jul 30, 2017 09:25
--- NOTE | 2017-07-30 09:27 | HHI.PR ---
Subjective Remarks Follow-up gastroenteritis, hypokalemia, UTI. Patient states that she feels better today. Had 2 loose stools yesterday. States that they are becoming much less frequent. No abdominal pain. Denies chest pain or dyspnea. Objective Vitals Vital Signs Date Time Temp Pulse Resp B/P (MAP) Pulse Ox O2 Delivery O2 Flow Rate FiO2 07/30/17 08:52 69 07/30/17 01:05 66 07/29/17 23:17 97.6 68 18 149/82 (104) 98 07/29/17 21:50 97.5 60 18 136/75 (95) 95 07/29/17 16:00 98.0 63 18 120/66 (84) 96 07/29/17 12:00 97.8 57 18 145/74 (97) 98 07/29/17 11:20 98 21 I/O 07/29/17 07/29/17 07/29/17 07/30/17 07/30/17 07/30/17 07:00 15:00 23:00 07:00 15:00 23:00 Intake Total 900 ml 682 ml 600 ml 1100 ml 168 ml Balance 900 ml 682 ml 600 ml 1100 ml 168 ml Intake Oral 600 ml IV Total 900 ml 682 ml 1100 ml 168 ml # Voids 3 # Bowel Movements 1 Result Diagram: 07/29/17 0759 07/30/17 0731 Objective Remarks General: No acute distress. Heart: Regular rate and rhythm. No murmur. Lungs: Clear to auscultation bilaterally. No wheezes, rales, or rhonchi. Breathing is nonlabored. Abdomen: Soft, nontender, nondistended. Extremities: No lower extremity edema. Psych: Alert and oriented. Procedures None Urinary Catheter: No Vascular Central Line Catheter: No A/P Assessment and Plan 1. UTI: Changed to Keflex at discharge. Urine culture growing less than 10, 000 CFU's gram-negative derrell. Patient remains afebrile. No leukocytosis. 2. Norovirus gastroenteritis: Stool culture positive on 07/26/17 for Norovirus. Continue supportive treatment with IV fluids. Nausea/vomiting improved. Diarrhea improving. Tolerating diet. 3. Hypokalemia: Improved. 4. Acute myeloid leukemia: Status post bone marrow transplant. Continue tacrolimus. 5. Hypomagnesemia: Supplement magnesium. 6. DVT prophylaxis: Continue Eliquis. Discharge Planning Discharge home in stable condition. Follow-up with PCP. Heart healthy diet. Activity as tolerated. Discussed importance of hand hygiene. Suleiman Iglesias MD Jul 30, 2017 09:27
== END 2017-07-30 10:38 | disposition home or self-care (01) | DRG 690 ==
LOC: NEPC 10:11 → NEDA 14:12 → N05B 15:25
PROVIDERS: ADMIT Family Medicine; ATTEND Family Medicine
DX: N39.0 Urinary tract infection, site not specified (principal); N17.9 Acute kidney failure, unspecified; Z94.81 Bone marrow transplant status; A08.11 Acute gastroenteropathy due to Norwalk agent; E83.42 Hypomagnesemia; E87.6 Hypokalemia; E86.0 Dehydration; I12.9 Hypertensive chronic kidney disease with stage 1 through stage 4 chronic kidney disease, or unspecified chronic kidney disease; N18.9 Chronic kidney disease, unspecified; Z85.6 Personal history of leukemia; Z86.718 Personal history of other venous thrombosis and embolism; Z79.02 Long term (current) use of antithrombotics/antiplatelets
CPT/HCPCS: 80048; 80053; 80197; 81001; 83605; 83690; 83735; 85025; 87040; 87086; 87493; 96361; 96374; 96375; J0696; J2405; J2543; J3480; J7030; J7507; J7512